=== PATIENT | female | born 2000 | race Caucasian/White ===

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

== ENCOUNTER 2021-02-19 19:13 | Emergency (ER) | payer BC, SELFPAY ==
[2021-02-19 19:22] VITALS: BP 128/63; PULSE 122; RESP 18; TEMP 37.3; O2SAT 98; BMI 24.2
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
[2021-02-19 19:42] VITALS: BP 128/63; PULSE 122; RESP 18; TEMP 37.3; O2SAT 98
== END 2021-02-19 19:44 | disposition home or self-care (01) ==
PROVIDERS: Emergency Provider Emergency Medicine
DX: F10.10 Alcohol abuse, uncomplicated (principal); F12.10 Cannabis abuse, uncomplicated; F17.290 Nicotine dependence, other tobacco product, uncomplicated
CPT/HCPCS: 36415; 99283

== ENCOUNTER 2022-06-19 18:06 | Emergency (ER) | payer BC, SELFPAY ==
[2022-06-19 18:07] VITALS: BP 128/67; PULSE 71; RESP 18; TEMP 36.9; O2SAT 99
[2022-06-19 18:20] VITALS: BP 128/67; PULSE 71; RESP 18; TEMP 36.9; O2SAT 99; BMI 37.8
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
[2022-06-19 18:38] LABS: UTC Pregnancy Test, Urine Negative (Negative)
[2022-06-19 18:43] VITALS: BP 128/67; PULSE 71; RESP 18; TEMP 36.9; O2SAT 99
== END 2022-06-19 19:02 | disposition home or self-care (01) ==
PROVIDERS: Emergency Provider Nurse Practitioner
DX: R11.2 Nausea with vomiting, unspecified (principal); R19.7 Diarrhea, unspecified
CPT/HCPCS: 81025; 99212; G0463

== ENCOUNTER 2022-07-06 10:11 | Emergency (ER) | payer BC, SELFPAY ==
[2022-07-06 11:15] VITALS: BP 133/74; PULSE 84; RESP 18; TEMP 36.9; O2SAT 96
--- NOTE | 2022-07-06 11:22 | HMH.EDUTC ---
[facility] [place] Disposition Clinical Impression: Menorrhagia Qualifiers: Menorrhagia type: with irregular cycle Qualified Code(s): N92.1 - Excessive and frequent menstruation with irregular cycle Disposition: Home, Self-Care Condition on Discharge: Good Instructions: DI for Menorrhagia Additional Instructions: Drink plenty of fluids. Take tylenol for pain. Follow up with your regular doctor. Follow up with an addiction therapist doctor. I put in a referral to Dr. Rodriguez. GO TO THE ER FOR ANY WORSENING SYMPTOMS Referrals: Provider,MD Mitchell [Primary Care Provider] - Ray Rodriguez MD [Staff Physician] - Forms: Work/School Release Time of Disposition: 11:40 Medical Decision Making - Medical Records Medical records reviewed: No: I reviewed the patient's medical records. - Edis Inquiry Pt receiving controlled substance: No Vital Signs: 07/06/22 11:15 07/06/22 11:45 Temperature 98.5 F 98.5 F Temperature Source Oral Pulse Rate 84 Pulse Rate [Right Brachial] 84 Respiratory Rate 18 18 Blood Pressure 133/74 Blood Pressure [Right Arm] 133/74 Blood Pressure Mean [Right Arm] 93 Blood Pressure Source [Right Arm] Automatic Cuff Blood Pressure Position [Right Arm] Sitting 02 Sat by Pulse Oximetry 96 Oxygen Delivery Method Room Air [facility] [place] HPI - General Stated complaint: long heavy mentral cycle Time Seen by Provider: 07/06/22 11:23 - History of Present Illness Provider Complaint: She states that she has been having a very heavy period for the past 4 days. She is having cramping and she is feeling tired. - Related Data Previous Rx's Medication Instructions Recorded Dicyclomine HCl [Bentyl 10mg 10 mg PO TID PRN #15 cap 06/19/22 capsule] Ondansetron [Zofran 4mg ODT] 4 mg PO TIDP PRN #10 tab 06/19/22 Allergies Allergy/AdvReac Type Severity Reaction Status Date / Time No Known Allergies Allergy Verified 06/19/22 18:27 [facility] History - Hepatitis A Screen Attestation statement:: This patient has been screened for Hepatitis A risk factors. I have reviewed the patient's past medical history: Yes Medical History: Denies:: Diabetes Mellitus Type 1, Diabetes Mellitus Type 2 Laterality Cases: Bilateral: Tonsillectomy - Social History Smoking Status: Current every day smoker Tobacco Type: e-cigarettes # Packs/Day (cigarettes): 1 Alcohol Intake: never Alcohol Intake Frequency:: a few times a week Substance Use Type: marijuana Occupational Status: other ROS Obtained: Yes All systems reviewed & no additional complaints - Constitutional Constitutional: Denies chills, Denies fever(s) - Eyes Eyes: Denies blurry vision - ENT Ears, Nose, Mouth, and Throat: Denies sore throat - Cardiovascular Cardiovascular: Denies chest pain - Respiratory Respiratory: Denies chest congestion, Denies cough Physical Exam - General General appearance: alert, in no apparent distress - Head Head exam: atraumatic, normocephalic, normal inspection - Eye Eye exam: Present: normal appearance, PERRL, EOMI - ENT ENT exam: Present: normal exam, normal oropharynx, mucous membranes moist, TM's normal bilaterally, normal external ear exam - Neck Neck exam: Present: normal inspection, full ROM, trachea midline. Absent: meningismus, lymphadenopathy - Chest Chest inspection: Present: normal inspection, symmetric chest wall rise. Absent: tenderness - Respiratory Respiratory exam: Present: normal lung sounds bilaterally. Absent: respiratory distress - Cardiovascular Cardiovascular exam: Present: regular rate, normal rhythm. Absent: JVD - Abdominal Exam Abdominal exam: Present: soft, normal bowel sounds. Absent: distention, tenderness, guarding - Extremities Exam Extremities exam: Present: normal inspection, full ROM, normal capillary refill. Absent: calf tenderness - Back Exam Back exam: Present: normal inspection. Absent: tenderness - Neurological Exam Neurological e
[2022-07-06 11:45] VITALS: BP 133/74; PULSE 84; RESP 18; TEMP 36.9; O2SAT 96
== END 2022-07-06 11:48 | disposition home or self-care (01) ==
PROVIDERS: Emergency Provider Nurse Practitioner Family
DX: N92.1 Excessive and frequent menstruation with irregular cycle (principal)
CPT/HCPCS: 99212; G0463

== ENCOUNTER → 2023-02-26 13:09 | Outpatient (CLI) | payer BC, SELFPAY ==
--- NOTE | 2023-02-26 13:09 | US_ITS ---
FINAL REPORT CLINICAL HISTORY: abnormal vaginal bleeding, menorrhagia FINDINGS: Transvaginal sonographic images of the pelvis were obtained. The uterus measures 8.3 x 3.0 x 4.1 cm. No mass is identified. The endometrium measures 8 mm which is normal. The right ovary measures up to 4.0 cm. The left ovary measures up to 3.4 cm. There are small follicles bilaterally. No fluid is seen in the pelvis. IMPRESSION: Unremarkable pelvic ultrasound. Reviewed, Interpreted and Dictated by Chris Felix III, MD Transcribed by Felisha Mendez Authenticated and . [facility]
[2023-02-26 15:09] LABS: Free T4 (Free Thyroxine) 0.97 ng/dl (0.78-2.19)
[2023-02-26 15:24] LABS: Thyroid Stimulating Hormone 1.55 uIU/mL (0.465-4.68)
[2023-02-28 07:57] LABS: FSH 5.6 mIU/mL (.); LH 20.8 mIU/mL (.)
[2023-02-28 10:18] LABS: HIV Screen 4th Generation wRfx Non Reactive (Non Reactive); Rapid Plasma Reagin Ab Titer Non Reactive (NonRea<1:1)
[2023-03-08 03:02] LABS: Hep A Ab, IgM Negative; Hepatitis B Core Antibody IgM Negative; Hepatitis B Surface Antigen Negative; Hepatitis C Antibody Non Reactive
[2023-03-08 03:04] LABS: Treponema pallidum Antibodies Non Reactive
== END ==
PROVIDERS: PCP Nurse Practitioner Obstetrics & Gynecology; Visit Provider Nurse Practitioner Obstetrics & Gynecology
DX: R10.9 Unspecified abdominal pain (principal); N92.1 Excessive and frequent menstruation with irregular cycle; N93.9 Abnormal uterine and vaginal bleeding, unspecified; N92.6 Irregular menstruation, unspecified; Z72.51 High risk heterosexual behavior
CPT/HCPCS: 36415; 76830; 80074; 83001; 83002; 84439; 84443; 86593; 86703; 86780; G0432